=== PATIENT | female | born 1995 | race Caucasian/White ===

== ENCOUNTER 2016-08-15 08:31 | Emergency (ER) | payer OTHER ==
--- NOTE | 2016-08-15 10:33 | DIAGNOSTIC IMAGING REPORT ---
PROCEDURE: XR CHEST 2 VIEW INDICATION: COUGH TECHNIQUE: PA and lateral views. COMPARISON: None. FINDINGS: Lungs are clear. Heart and mediastinum are normal. Thorax is normal. IMPRESSION: 1. Negative chest.
--- NOTE | 2016-08-15 11:02 | ED NURSING NOTES ---
Clinical Report - Nurses [address] [place] [address] 08/15/2016 8:32 Patient: KERRIE MACHUCA TRIAGE Triage time 0850. Acuity: LEVEL 4. Chief Complaint: COUGH and (cold sxs x 3 days, now with increasing pain with breathing). Alert. No acute distress. --08:55 Bre Salazar 08:52 08/15/16. BP: 107/59. HR: 82. RR: 16. O2 saturation: 98%. Temp: 98.3 F. Pain level now 01/13. --08:55 Bre Salazar. Weight: 52.6 kg. Height/Length: 63 inches. BMI: 20.5. Growth Chart Percentile: Weight: 26.3%. Height/Length: 30.5%. --08:51 Bre Salazar. Medications None. --08:53 Bre Salazar. Allergies No Known Drug Allergy. --08:53 Bre Salazar. History Arrived by private vehicle. Historian: patient. Onset. (4 days ago). 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 SOCIAL HX: Current every day light tobacco smoker, start date 2014 (cigarette)- less than 1/2 a pack per day. --08:55 Bre Salazar. Interventions ID band on patient. To treatment room. --08:55 Bre Salazar. PHYSICAL ASSESSMENT Ambulatory to room. GENERAL / NEURO / PSYCH: Alert. Oriented X 4. Appears in no acute distress. HEENT: Pupils equal, round and reactive to light. Ears within normal limits. Nares within normal limits. Mouth within normal limits upon inspection. Voice within normal limits. Mucous membranes are pink. RESPIRATORY: Respirations not labored. CVS: Normal sinus rhythm noted. Capillary refill less than 2 seconds. SKIN: Skin is warm. Normal skin turgor. --08:57 Bre Salazar. DISPOSITION / DISCHARGE Departure time: 1110. Condition at departure: unchanged and stable. No learning barriers present. Reviewed medication(s). Patient verbalized understanding. Written instructions provided in Thai. The patient was discharged by the physician. She was discharged home. She left the Emergency Department ambulatory and via private vehicle. Patient driving. --11:12 Bre Salazar 11:11 08/15/16. BP: 108/77. HR: 79. RR: 16. O2 saturation: 98%. --11:12 Bre Salazar. Locked/Released at 08/15/2016 11:12 by Bre Salazar,
--- NOTE | 2016-08-15 11:02 | ED CLINICAL REPORT ---
Clinical Report - Physicians/Mid Levels [facility] [address] [place] [address] 08/15/2016 8:32 Patient: KERRIE MACHUCA Arrived- By private vehicle. Historian- patient. HISTORY OF PRESENT ILLNESS Chief Complaint: COUGH. This started 4 - 5 days and is still present and worsening. It is not gone now. The illness is described as moderate. The patient has had sputum production, a cough, nasal congestion, sinus pressure and a nasal discharge. She has had chest discomfort (only when taking a deep breathing). She has had fever (resolved yesterday). Additional history - The patient has had contact with a sick individual. (family). No recent travel. Similar symptoms previously: None. Recent medical care: Not recently seen/assessed. REVIEW OF SYSTEMS No nausea, vomiting, diarrhea or abdominal pain. All systems otherwise negative, except as recorded above. PAST HISTORY No history of asthma. Medications: None. Allergies: No Known Drug Allergy. SOCIAL HISTORY Current every day smoker. No alcohol use or drug use. Is a local resident. FAMILY HISTORY Negative. ADDITIONAL NOTES The nursing notes have been reviewed. PHYSICAL EXAM Vital Signs: 08/15/2016 08:52 BP: 107/59. HR: 82. RR: 16. O2 saturation: 98%. Temp: 98.3 F. Blood pressure normal. Oxygen saturation normal. Appearance: Alert. No acute distress. Eyes: Pupils equal, round and reactive to light. Eyes normal inspection. ENT: Ears normal. Nose normal. Pharynx normal. Uvula midline. (+). Neck: Normal inspection. Neck supple. CVS: Normal heart rate and rhythm. Heart sounds normal. Pulses normal. Respiratory: No respiratory distress. Breath sounds normal. No rales, rhonchi, wheezes or stridor. Abdomen: Soft and nontender. No organomegaly. Back: Normal inspection. Skin: Skin warm and dry. Normal skin color. No rash. Normal skin turgor. Extremities: Extremities exhibit normal ROM. No lower extremity edema. LABS, X-RAYS, AND EKG Chest X-ray: (PROCEDURE: XR CHEST 2 VIEW INDICATION: COUGH TECHNIQUE: PA and lateral views. COMPARISON: None. FINDINGS: Lungs are clear. Heart and mediastinum are normal. Thorax is normal. IMPRESSION: 1. Negative chest.). Views: PA and lateral. The X-rays were independently viewed by me, interpreted by the radiologist and discussed with the radiologist. Prior films were not available for comparison. PROGRESS AND PROCEDURES Course of Care: The patient is a pleasant 20-year-old female presenting for evaluation of signs and symptoms that are likely consistent with the flu. Patient has been having symptoms for the past for 5 days. Patient is not at high risk for any acute decompensation with food. 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 Patient is not a candidate for Tamiflu otherwise. On the differential diagnosis would also include pneumonia. The patient does have a pneumonia, antibiotic to be required. Patient otherwise has a clearlung examination. Low clinical suspicion. Chest x-ray ordered for further evaluation. Patient is agreeable to the treatment and plan. Chest x-ray does not show any signs of acute consolidations or pneumonia. Lungs are inflated properly. No signs of pneumothorax. Do not feel antibiotics are warranted at this time. Patient likely with viral upper respiratory tract infection. I discussion with patient in regards to workup, diagnosis, home care, follow-up, and return precautions. All questions answered. The patient expressed understanding of these instructions and was agreeable to them. Patient is a good outpatient candidate. Patient has good follow-up. Patient also has good support. Disposition: Discharged. Condition: good. CLINICAL IMPRESSION 08/15/2016 08:52 BP: 107/59. HR: 82. RR: 16. O2 saturation: 98%. Temp: 98.3 F. Blood pressure normal. Oxygen saturation normal. Acute maxillary and frontal sinusitis (bilateral). INSTRUCTIONS Off work today. Warnings: GENERAL WARNINGS: Return or contact your physician immediately if your condition worsens or changes unexpectedly, if not improving as expected, or if other problems arise. Specifically return if pain, vomiting, bleeding, breathing difficulty or fever. Your Current Medications: CONTINUE TAKING THE FOLLOWING MEDICATIONS: None*. Prescription Medications: Zithromax Z-Harshad: Take according to package instructions. No refills. Substitution is permissible. OTC Medications: Claritin 10 mg (available over the counter): take 1 tablet orally every 12 hours as needed for congestion. Dispense thirty (30). No refill. Substitution is permissible. Pseudoephedrine 30 mg tabs (available over the counter): take 1 tablet orally every 6 hours for 3 days, as needed for congestion. No refill. (Disp 12 tabs. Do not take for longer than 3 days.) Follow-up: Return to the emergency department as needed. Follow up with your doctor in three days. Reason for referral: recheck today's concerns. Summary of care provided to patient via paper. Screening today revealed the patient's blood pressure to be in the normal range. The patient should follow up with a primary care provider for blood pressure management. Understanding of the discharge instructions verbalized by patient. (Electronically signed by Darryl Perez Dr. 08/17/2016 1:47)
--- NOTE | 2016-08-15 11:02 | ED ORDER SUMMARY ---
..... Patient: KERRIE MACHUCA OrderSheet [facility] VisitID: [id number] [address] [place] [address] 20y, F Registration Date/Time: 08/15/2016 ORDER SHEET Weight: 52.6 kg Allergies: No Known Drug Allergy GENERAL ORDERS: Chest 2V Urgent (08:55 08/15/2016 Kerri per protocol) (Ack 9:05 LNations ER Tech1) (11:12 NHouse ER Tech1) MEDICATION ORDERS: IV FLUIDS: ORDER SHEET NOTES: [Electronically signed by Bre Salazar (11:12 08/15/2016)] [Electronically signed by Darryl Perez Dr. (01:47 08/17/2016)] [Electronically locked/signed by Bre Salazar (11:12 08/15/2016)]
--- NOTE | 2016-08-15 11:02 | ED ORDER SUMMARY ---
..... Patient: KERRIE MACHUCA OrderSheet [facility] VisitID: [id number] [address] [place] [address] 20y, F Registration Date/Time: 08/15/2016 ORDER SHEET Weight: 52.6 kg Allergies: No Known Drug Allergy GENERAL ORDERS: Chest 2V Urgent (08:55 08/15/2016 Kerri per protocol) (Ack 9:05 LNations ER Tech1) (11:12 NHouse ER Tech1) MEDICATION ORDERS: IV FLUIDS: ORDER SHEET NOTES: [Electronically signed by Bre Salazar (11:12 08/15/2016)] [Electronically signed by Darryl Perez Dr. (01:47 08/17/2016)] [Electronically locked/signed by Bre Salazar (11:12 08/15/2016)]
--- NOTE | 2016-08-15 11:02 | ED NURSING NOTES ---
Clinical Report - Nurses [facility] [address] [place] [address] 08/15/2016 8:32 Patient: KERRIE MACHUCA TRIAGE Triage time 0850. Acuity: LEVEL 4. Chief Complaint: COUGH and (cold sxs x 3 days, now with increasing pain with breathing). Alert. No acute distress. --08:55 Bre Salazar 08:52 08/15/16. BP: 107/59. HR: 82. RR: 16. O2 saturation: 98%. Temp: 98.3 F. Pain level now 01/13. --08:55 Bre Salazar. Weight: 52.6 kg. Height/Length: 63 inches. BMI: 20.5. Growth Chart Percentile: Weight: 26.3%. Height/Length: 30.5%. --08:51 Bre Salazar. Medications None. --08:53 Bre Salazar. Allergies No Known Drug Allergy. --08:53 Bre Salazar. History Arrived by private vehicle. Historian: patient. Onset. (4 days ago). 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 SOCIAL HX: Current every day light tobacco smoker, start date 2014 (cigarette)- less than 1/2 a pack per day. --08:55 Bre Salazar. Interventions ID band on patient. To treatment room. --08:55 Bre Salazar. PHYSICAL ASSESSMENT Ambulatory to room. GENERAL / NEURO / PSYCH: Alert. Oriented X 4. Appears in no acute distress. HEENT: Pupils equal, round and reactive to light. Ears within normal limits. Nares within normal limits. Mouth within normal limits upon inspection. Voice within normal limits. Mucous membranes are pink. RESPIRATORY: Respirations not labored. CVS: Normal sinus rhythm noted. Capillary refill less than 2 seconds. SKIN: Skin is warm. Normal skin turgor. --08:57 Bre Salazar. DISPOSITION / DISCHARGE Departure time: 1110. Condition at departure: unchanged and stable. No learning barriers present. Reviewed medication(s). Patient verbalized understanding. Written instructions provided in Macedonian. The patient was discharged by the physician. She was discharged home. She left the Emergency Department ambulatory and via private vehicle. Patient driving. --11:12 Bre Salazar 11:11 08/15/16. BP: 108/77. HR: 79. RR: 16. O2 saturation: 98%. --11:12 Bre Salazar. Locked/Released at 08/15/2016 11:12 by Bre Salazar,
--- NOTE | 2016-08-17 01:47 | ED MED RECONCILIATION SUMMARY ---
Patient: KERRIE MACHUCA Medication Reconciliation Report [facility] VisitID: [id number] [place] [address] 20y, F Registration Date/Time: 08/15/2016 Weight: 52.6 kg Height/Length: 63 in. BMI: 20.5 ALLERGIES: No Known Drug Allergy The patient's Home Medications are listed below: NONE. The source(s) of the original Home Medication information: Not obtained. The following Medications were given to the patient in the Emergency Department: None. The following Medications were prescribed to the patient: Zithromax Z-Harshad: Take according to package instructions. No refills. Substitution is permissible. -- Darryl Perez Dr. Claritin 10 mg (available over the counter): take 1 tablet orally every 12 hours as needed for congestion. Dispense thirty (30). No refill. Substitution is permissible. -- Darryl Perez Dr. Pseudoephedrine 30 mg tabs (available over the counter): take 1 tablet orally every 6 hours for 3 days, as needed for congestion. No refill.(Disp 12 tabs. Do not take for longer than 3 days.) -- Darryl Perez Dr.
--- NOTE | 2016-08-17 01:47 | ED DISCHARGE INSTRUCTIONS ---
Patient: KERRIE MACHUCA General Instructions [facility] VisitID: [id number] [place] [address] 20y, F Registration Date/Time: 08/15/2016 08/15/2016 08:52 BP: 107/59. HR: 82. RR: 16. O2 saturation: 98%. Temp: 98.3 F. Blood pressure normal. Oxygen saturation normal. Acute maxillary and frontal sinusitis (bilateral). INSTRUCTIONS Off work today. Warnings: GENERAL WARNINGS: Return or contact your physician immediately if your condition worsens or changes unexpectedly, if not improving as expected, or if other problems arise. Specifically return if pain, vomiting, bleeding, breathing difficulty or fever. Your Current Medications: CONTINUE TAKING THE FOLLOWING MEDICATIONS: None*. Prescription Medications: Zithromax Z-Harshad: Take according to package instructions. No refills. Substitution is permissible. OTC Medications: Claritin 10 mg (available over the counter): take 1 tablet orally every 12 hours as needed for congestion. Dispense thirty (30). No refill. Substitution is permissible. Pseudoephedrine 30 mg tabs (available over the counter): take 1 tablet orally every 6 hours for 3 days, as needed for congestion. No refill. (Disp 12 tabs. Do not take for longer than 3 days.) Follow-up: Return to the emergency department as needed. Follow up with your doctor in three days. Reason for referral: recheck today's concerns. Summary of care provided to patient via paper. Screening today revealed the patient's blood pressure to be in the normal range. The patient should follow up with a primary care provider for blood pressure management. Understanding of the discharge instructions verbalized by patient. ADDITIONAL INFORMATION Sinusitis [Abx Tx] The sinuses are air-filled spaces within the bones of the face. They connect to the inside of the nose. Sinusitis is an inflammation of the tissue lining the sinus cavity. Sinus inflammation can occur during a cold or hay-fever (allergies to pollens and other particles in the air) and cause symptoms of sinus congestion and fullness. A sinus infection causes fever, headache and facial pain. There is usually green or yellow drainage from the nose or into the back of the throat (post-nasal drip). Antibiotics are prescribed to treat this condition. Home Care: Drink plenty of water, hot tea, and other liquids to stay well hydrated. This thins the mucus and promotes sinus drainage. Apply heat to the painful areas of the face. Use a towel soaked in hot water. Or, ski instructor the shower and direct the hot spray onto your face. This is a good way to inhale warm water vapor and get heat on your face at the same time. (Cover your mouth and nose with your hands so you can still breathe as you do this.) Use a vaporizer with products such as Sunshine Heart VapoRub (contains menthol) at night. Suck on peppermint, menthol or eucalyptus hard candies during the day. An expectorant containing guaifenesin (such as Robitussin), helps to thin the mucus and promote drainage from the sinuses. [id number] decongestants may be used unless a similar medicine was prescribed. Nasal sprays work the fastest. Use one that contains phenylephrine (Michael-synephrine, Sinex and others) or oxymetazoline (Afrin). First blow the nose gently to remove mucus, then apply the drops. Do not use these medicines more often than directed on the label or for more than three days or symptoms may worsen. You may also use tablets containing pseudoephedrine (Sudafed). Many sinus remedies combine ingredients, which may increase side effects. Read the labels or ask the pharmacist for help. NOTE: Persons with high blood pressure should not use decongestants. They can raise blood pressure. Antihistamines are useful if allergies are a cause of your sinusitis. The mildest one is chlorpheniramine (available without a prescription). The dose for adults is 8-12mg three times a day. [NOTE: Do not use chlorpheniramine if you have glaucoma or if you are a man with trouble urinating due to an enlarged prostate.] Claritin (loratidine) is an antihistamine that causes less drowsiness and is a good alternative for daytime use. Do not use nasal rinses or irrigation during an acute sinus infection, unless advised by your doctor. Rinsing may spread the infection to other sinuses. You may use acetaminophen (Tylenol) or ibuprofen (Motrin, Advil) to control pain, unless another pain medicine was prescribed. [ NOTE: If you have chronic liver or kidney disease or ever had a stomach ulcer, talk with your doctor before using these medicines.] (Aspirin should never be used in anyone under 18 years of age who is ill with a fever. It may cause severe liver damage.) Finish the full course, even if you are feeling better after a few days. Follow Up with your doctor or this facility in one week or as instructed by our staff if not improving. Get Prompt Medical Attention if any of the following occur: Facial pain or headache becomes more severe Stiff neck Unusual drowsiness or confusion, or not acting like your normal self Swelling of the forehead or eyelids Vision problems including blurred or double vision Fever of 100.4F (38C) or higher, or as directed by your healthcare provider Seizure Azithromycin Oral tablet What is this medicine? AZITHROMYCIN (az ith kt BRENNER sin) is a macrolide antibiotic. It is used to treat or prevent certain kinds of bacterial infections. It will not work for colds, flu, or other viral infections. How should I use this medicine? Take this medicine by mouth with a full glass of water. Follow the directions on the prescription label. The tablets can be taken with food or on an empty stomach. If the medicine upsets your stomach, take it with food. Take your medicine at regular intervals. Do not take your medicine more often than directed. Take all of your medicine as directed even if you think your are better. Do not skip doses or stop your medicine early. Talk to your popcorn attendant regarding the use of this medicine in children. Special care may be needed. What side effects may I notice from receiving this medicine? Side effects that you should report to your doctor or health healthcare management consultant as soon as possible: allergic reactions like skin rash, itching or hives, swelling of the face, lips, or tongue confusion, nightmares or hallucinations dark urine difficulty breathing hearing loss irregular heartbeat or chest pain pain or difficulty passing urine redness, blistering, peeling or loosening of the skin, including inside the mouth white patches or sores in the mouth yellowing of the eyes or skin Side effects that usually do not require medical attention (report to your doctor or health healthcare management consultant if they continue or are bothersome): diarrhea dizziness, drowsiness headache stomach upset or vomiting tooth discoloration vaginal irritation What may interact with this medicine? Do not take this medicine with any of the following medications: lincomycin This medicine may also interact with the following medications: amiodarone antacids cyclosporine digoxin magnesium nelfinavir phenytoin warfarin What if I miss a dose? If you miss a dose, take it as soon as you can. If it is almost time for your next dose, take only that dose. Do not take double or extra doses. Where should I keep my medicine? Keep out of the reach of children. Store at room temperature between 15 and 30 degrees C (59 and 86 degrees F). Throw away any unused medicine after the expiration date. What should I tell my health care provider before I take this medicine? They need to know if you have any of these conditions: kidney disease liver disease irregular heartbeat or heart disease an unusual or allergic reaction to azithromycin, erythromycin, other macrolide antibiotics, foods, dyes, or preservatives or trying to get breast-feeding What should I watch for while using this medicine? Tell your doctor or health healthcare management consultant if your symptoms do not improve. Do not treat diarrhea with over the counter products. Contact your doctor if you have diarrhea that lasts more than 2 days or if it is severe and watery. This medicine can make you more sensitive to the sun. Keep out of the sun. If you cannot avoid being in the sun, wear protective clothing and use sunscreen. Do not use sun lamps or tanning beds/booths. Loratadine Oral tablet, extended release 24 hour What is this medicine? LORATADINE (giovana AT a jerri) is an antihistamine. It helps to relieve sneezing, runny nose, and itchy, watery eyes. This medicine is used to treat the symptoms of allergies. It is also used to treat itchy skin rash and hives. How should I use this medicine? Take this medicine by mouth with a glass of water. Follow the directions on the label. You may take this medicine with food or on an empty stomach. Take your medicine at regular intervals. Do not take your medicine more often than directed. Talk to your popcorn attendant regarding the use of this medicine in children. While this medicine may be used in children as young as 6 years for selected conditions, precautions do apply. What side effects may I notice from receiving this medicine? Side effects that you should report to your doctor or health healthcare management consultant as soon as possible: allergic reactions like skin rash, itching or hives, swelling of the face, lips, or tongue breathing problems unusually restless or nervous Side effects that usually do not require medical attention (report to your doctor or health healthcare management consultant if they continue or are bothersome): drowsiness dry or irritated mouth or throat headache What may interact with this medicine? other medicines for colds or allergies What if I miss a dose? If you miss a dose, take it as soon as you can. If it is almost time for your next dose, take only that dose. Do not take double or extra doses. Where should I keep my medicine? Keep out of the reach of children. Store at room temperature between 2 and 30 degrees C (36 and 86 degrees F). Protect from moisture. Throw away any unused medicine after the expiration date. What should I tell my health care provider before I take this medicine? They need to know if you have any of these conditions: asthma kidney disease liver disease an unusual or allergic reaction to loratadine, other antihistamines, other medicines, foods, dyes, or preservatives or trying to get breast-feeding What should I watch for while using this medicine? Tell your doctor or healthcare professional if your symptoms do not start to get better or if they get worse. Your mouth may get dry. Chewing sugarless gum or sucking hard candy, and drinking plenty of water may help. Contact your doctor if the problem does not go away or is severe. You may get drowsy or dizzy. Do not drive, use machinery, or do anything that needs mental alertness until you know how this medicine affects you. Do not stand or sit up quickly, especially if you are an older patient. This reduces the risk of dizzy or fainting spells. Pseudoephedrine Hydrochloride Oral tablet [Abuse Deterrent] What is this medicine? PSEUDOEPHEDRINE (raman bello e FED rin) is a decongestant. It is used to treat congestion of the nose or sinuses. How should I use this medicine? Take this medicine by mouth with a glass of water. Follow the directions on the package or prescription label. Take your medicine at regular intervals. Do not take your medicine more often than directed. Talk to your popcorn attendant regarding the use of this medicine in children. While this drug may be prescribed for children as young as 6 years of age for selected conditions, precautions do apply. Patients over 65 years old may have a stronger reaction and need a smaller dose. What side effects may I notice from receiving this medicine? Side effects that you should report to your doctor or health healthcare management consultant as soon as possible: allergic reactions like skin rash, itching or hives, swelling of the face, lips, or tongue bloody diarrhea with stomach pain breathing problems chest pain confused, agitated, nervous fast, irregular heartbeat feeling faint or lightheaded, falls hallucinations high blood pressure pain, tingling, numbness in the hands or feet trouble passing urine or change in the amount of urine trouble sleeping Side effects that usually do not require medical attention (report to your doctor or health healthcare management consultant if they continue or are bothersome): headache loss of appetite nausea, stomach upset What may interact with this medicine? Do not take this medicine with any of the following medications: bromocriptine ergot alkaloids like dihydroergotamine, ergonovine, ergotamine, methylergonovine MAOIs like Carbex, Eldepryl, Marplan, Nardil, and Parnate stimulant medicines for attention disorders, weight loss, or to stay awake This medicine may also interact with the following medications: alcohol atropine bretylium caffeine digoxin linezolid mecamylamine medicines for blood pressure medicines for depression, anxiety, or psychotic disturbances like fluoxetine, sertraline medicines for enlarged prostate medicines for sleep other medicines for cold, cough, or allergy procarbazine reserpine some heart medicines like metoprolol [place]'s Wort What if I miss a dose? If you miss a dose, take it as soon as you can. If it is almost time for your next dose, take only that dose. Do not take double or extra doses. Where should I keep my medicine? Keep out of the reach of children. Store at room temperature between 15 and 25 degrees C (59 and 77 degrees F). Protect from heat and moisture. Throw away any unused medicine after the expiration date. What should I tell my health care provider before I take this medicine? They need to know if you have any of the following conditions: diabetes glaucoma heart disease high blood pressure kidney disease prostate trouble taken an MAOI like Carbex, Eldepryl, Marplan, Nardil, or Parnate in last 14 days thyroid disease trouble passing urine an unusual or allergic reaction to pseudoephedrine, other medicines, foods, dyes, or preservatives or trying to get breast-feeding What should I watch for while using this medicine? Tell your doctor or healthcare professional if your symptoms do not start to get better or if they get worse. See your doctor if you are not better in 7 days or if you have a fever. You have been given the following additional information: Sinusitis, Abx Tx Azithromycin Oral tablet Loratadine Oral tablet, extended release 24 hour Pseudoephedrine Hydrochloride Oral tablet [Abuse Deterrent] Off work today. (Electronically signed by Darryl Perez Dr. 08/17/2016 1:47)
--- NOTE | 2016-08-17 01:47 | ED MAR SUMMARY ---
..... Medication Administration Record [facility] [address] [place], [place] [id number] Patient: KERRIE MACHUCA Visit ID: [id number] 20y, F Weight: 52.6 kg Height/Length: 63 in BMI: 20.5 ALLERGIES: No Known Drug Allergy
--- NOTE | 2016-08-17 01:47 | ED MAR SUMMARY ---
..... Medication Administration Record [facility] [address] [place], [place] [id number] Patient: KERRIE MACHUCA Visit ID: [id number] 20y, F Weight: 52.6 kg Height/Length: 63 in BMI: 20.5 ALLERGIES: No Known Drug Allergy
--- NOTE | 2016-08-17 01:47 | ED MED RECONCILIATION SUMMARY ---
Patient: KERRIE MACHUCA Medication Reconciliation Report [facility] VisitID: [id number] [place] [address] 20y, F Registration Date/Time: 08/15/2016 Weight: 52.6 kg Height/Length: 63 in. BMI: 20.5 ALLERGIES: No Known Drug Allergy The patient's Home Medications are listed below: NONE. The source(s) of the original Home Medication information: Not obtained. The following Medications were given to the patient in the Emergency Department: None. The following Medications were prescribed to the patient: Zithromax Z-Harshad: Take according to package instructions. No refills. Substitution is permissible. -- Darryl Perez Dr. Claritin 10 mg (available over the counter): take 1 tablet orally every 12 hours as needed for congestion. Dispense thirty (30). No refill. Substitution is permissible. -- Darryl Perez Dr. Pseudoephedrine 30 mg tabs (available over the counter): take 1 tablet orally every 6 hours for 3 days, as needed for congestion. No refill.(Disp 12 tabs. Do not take for longer than 3 days.) -- Darryl Perez Dr.
== END 2016-08-15 11:10 | disposition home or self-care (01) ==
LOC: ED SRH 08:31
DX: J01.00 Acute maxillary sinusitis, unspecified (principal); J01.10 Acute frontal sinusitis, unspecified; F17.210 Nicotine dependence, cigarettes, uncomplicated

== ENCOUNTER 2016-09-08 20:04 | Emergency (ER) | payer OTHER ==
--- NOTE | 2016-09-08 20:41 | ED ORDER SUMMARY ---
..... Patient: KERRIE MACHUCA OrderSheet [facility] VisitID: [id number] [address] [place] [address] 20y, F Registration Date/Time: 09/08/2016 ORDER SHEET Weight: 53.5 kg (stated) Allergies: No Known Drug Allergy GENERAL ORDERS: Dress Wounds (20:40 09/08/2016 Uziel GARDNER) (20:42 Regino JonesNEvelia) Culture, Wound Deep (Ear) (swab) Urgent (20:41 09/08/2016 Uziel GARDNER) (Ack 20:42 Cameron ARGUETA Traffic Personnel Supervisor) (20:42 Regino Boogie) MEDICATION ORDERS: IV FLUIDS: ORDER SHEET NOTES: [Electronically signed by Harvey Mcneill R.N. (20:56 09/08/2016)] [Electronically signed by Byron Lester MD (22:05 09/12/2016)] [Electronically locked/signed by Harvey Mcneill R.N. (20:56 09/08/2016)]
--- NOTE | 2016-09-08 20:41 | ED CLINICAL REPORT ---
Clinical Report - Physicians/Mid Levels [facility] [address] [place] [address] 09/08/2016 20:05 [id number] Time Seen: 20:27 Sep 08 2016. Arrived- By private vehicle. Historian- patient. CPT: ER phys charges level 3 plus (#[id number]). Abscess complicated I&D (#[id number]). HISTORY OF PRESENT ILLNESS Chief Complaint: LESION and (cyst behind right ear.). This started several months and is still present. It is described as painful. It has been located on the face (behind right ear.). No cause has been identified. Similar symptoms previously: None. Recent medical care: Not recently seen/assessed. REVIEW OF SYSTEMS No fever, chills, sore throat, cough or difficulty breathing. No hoarseness, lump in throat, enlarged lymph nodes, chest pain or abdominal pain. No nausea, diarrhea, difficulty with urination or joint pain. All systems otherwise negative, except as recorded above. PAST HISTORY Migraine Headache. Anxiety Reaction. Sinusitis. Abdominal Pain. Peptic Ulcer Disease. Gastroesophageal Reflux Disease. [place] teeth. Medications: None. Allergies: No Known Drug Allergy. SOCIAL HISTORY Heavy tobacco smoker (cigarette)- 1 pack per day. ADDITIONAL NOTES The nursing notes have been reviewed. PHYSICAL EXAM Vital Signs: 09/08/2016 20:10 BP: 120/68. HR: 90. RR: 16. O2 saturation: 100%. Temp: 97.9 F. Appearance: Alert. No acute distress. Eyes: Pupils equal, round and reactive to light. Conjunctivae and eyelids normal. ENT: Ears normal. Nose normal. Pharynx normal. ( Fluctuant mass behind the right ear. No erythema or cellulits. Tender to palpation.). Neck: Neck supple. No lymphadenopathy. Respiratory: No respiratory distress. Breath sounds normal. Skin: Skin warm. Normal skin color. No rash. Extremities: Extremities nontender. Neuro: Oriented X 3. LABS, X-RAYS, AND EKG Laboratory Tests: Culture, Wound Deep: (GARY: 09/08/2016 20:50) ( MsgRcvd 09/11/2016 11:56) IP SPECIMEN DESCRIPTION: SWAB Test Result Flag Units (Reference) GRAM STAIN, WOUND, DEEP NO CELLS/NO BACTERIA: NO CELLS OR BACTERIA SEEN CULTURE, WOUND DEEP, AEROBIC DATE: 09/11/16 PRELIM REPORT: FINAL REPORT -- NSF GROWTH: MODERATE GROWTH ID AND SENS TO FOLLOW: NO FURTHER WORKUP CULTURE, ANAEROBIC, WOUND DEEP DATE: 09/11/16 NO ANAEROBIC GROWTH AT:: NO ANAEROBES ISOLATED AT 3 DAYS PRELIM REPORT: FINAL REPORT . PROGRESS AND PROCEDURES Incision & Drainage of Abscess: The abscess is located in the head (behind right ear). The risks of the procedure, benefits and alternatives were explained. Consent was obtained. Anesthesia provided using 2% lidocaine. Skin cleansed with Betadine. The abscess was incised with a #11 surgical blade. A moderate amount of pus was drained. Cavity was irrigated with saline. Sample obtained for cultures and gram stain. A dressing was applied. Estimated blood loss: 1 mL. Patient/family counseled. Disposition: Discharged. Condition: stable and improved. CLINICAL IMPRESSION Infected cyst right , posterior ear. INSTRUCTIONS Protect wound and keep wound area clean. Change dressing twice daily. Keep wounds dry. You may wash wounds briefly, then dry. Apply neosporin twice daily. Warnings: Further evaluation is necessary. GENERAL WARNINGS: Return or contact your physician immediately if your condition worsens or changes unexpectedly, if not improving as expected, or if other problems arise. Prescription Medications: Hydrocodone/APAP 5mg / 325mg: take 1-2 orally every 6 hours as needed for pain. Dispense five (5). No refill. Bactrim DS 800 mg / 160 mg: Take 1 tablet orally every 12 hours for 7 days. Dispense fourteen (14). No refills. Substitution is permissible. Follow-up: Follow up with your doctor in one week. Call for an appointment. Understanding of the discharge instructions verbalized by patient. Discharge instructions reviewed with and understanding was verbalized by sight mounter. (Electronically signed by Byron Lester MD 09/12/2016 22:05)
--- NOTE | 2016-09-08 20:41 | ED CLINICAL REPORT ---
Clinical Report - Physicians/Mid Levels [facility] [address] [place] [address] 09/08/2016 20:05 [id number] Time Seen: 20:27 Sep 08 2016. Arrived- By private vehicle. Historian- patient. CPT: ER phys charges level 3 plus (#[id number]). Abscess complicated I&D (#[id number]). HISTORY OF PRESENT ILLNESS Chief Complaint: LESION and (cyst behind right ear.). This started several months and is still present. It is described as painful. It has been located on the face (behind right ear.). No cause has been identified. Similar symptoms previously: None. Recent medical care: Not recently seen/assessed. REVIEW OF SYSTEMS No fever, chills, sore throat, cough or difficulty breathing. No hoarseness, lump in throat, enlarged lymph nodes, chest pain or abdominal pain. No nausea, diarrhea, difficulty with urination or joint pain. All systems otherwise negative, except as recorded above. PAST HISTORY Migraine Headache. Anxiety Reaction. Sinusitis. Abdominal Pain. Peptic Ulcer Disease. Gastroesophageal Reflux Disease. [place] teeth. Medications: None. Allergies: No Known Drug Allergy. SOCIAL HISTORY Heavy tobacco smoker (cigarette)- 1 pack per day. ADDITIONAL NOTES The nursing notes have been reviewed. PHYSICAL EXAM Vital Signs: 09/08/2016 20:10 BP: 120/68. HR: 90. RR: 16. O2 saturation: 100%. Temp: 97.9 F. Appearance: Alert. No acute distress. Eyes: Pupils equal, round and reactive to light. Conjunctivae and eyelids normal. ENT: Ears normal. Nose normal. Pharynx normal. ( Fluctuant mass behind the right ear. No erythema or cellulits. Tender to palpation.). Neck: Neck supple. No lymphadenopathy. Respiratory: No respiratory distress. Breath sounds normal. Skin: Skin warm. Normal skin color. No rash. Extremities: Extremities nontender. Neuro: Oriented X 3. LABS, X-RAYS, AND EKG Laboratory Tests: Culture, Wound Deep: (GARY: 09/08/2016 20:50) ( MsgRcvd 09/11/2016 11:56) IP SPECIMEN DESCRIPTION: SWAB Test Result Flag Units (Reference) GRAM STAIN, WOUND, DEEP NO CELLS/NO BACTERIA: NO CELLS OR BACTERIA SEEN CULTURE, WOUND DEEP, AEROBIC DATE: 09/11/16 PRELIM REPORT: FINAL REPORT -- NSF GROWTH: MODERATE GROWTH ID AND SENS TO FOLLOW: NO FURTHER WORKUP CULTURE, ANAEROBIC, WOUND DEEP DATE: 09/11/16 NO ANAEROBIC GROWTH AT:: NO ANAEROBES ISOLATED AT 3 DAYS PRELIM REPORT: FINAL REPORT . PROGRESS AND PROCEDURES Incision & Drainage of Abscess: The abscess is located in the head (behind right ear). The risks of the procedure, benefits and alternatives were explained. Consent was obtained. Anesthesia provided using 2% lidocaine. Skin cleansed with Betadine. The abscess was incised with a #11 surgical blade. A moderate amount of pus was drained. Cavity was irrigated with saline. Sample obtained for cultures and gram stain. A dressing was applied. Estimated blood loss: 1 mL. Patient/family counseled. Disposition: Discharged. Condition: stable and improved. CLINICAL IMPRESSION Infected cyst right , posterior ear. INSTRUCTIONS Protect wound and keep wound area clean. Change dressing twice daily. Keep wounds dry. You may wash wounds briefly, then dry. Apply neosporin twice daily. Warnings: Further evaluation is necessary. GENERAL WARNINGS: Return or contact your physician immediately if your condition worsens or changes unexpectedly, if not improving as expected, or if other problems arise. Prescription Medications: Hydrocodone/APAP 5mg / 325mg: take 1-2 orally every 6 hours as needed for pain. Dispense five (5). No refill. Bactrim DS 800 mg / 160 mg: Take 1 tablet orally every 12 hours for 7 days. Dispense fourteen (14). No refills. Substitution is permissible. Follow-up: Follow up with your doctor in one week. Call for an appointment. Understanding of the discharge instructions verbalized by patient. Discharge instructions reviewed with and understanding was verbalized by art therapy certified supervisor. (Electronically signed by Byron Lester MD 09/12/2016 22:05)
--- NOTE | 2016-09-08 20:41 | ED NURSING NOTES ---
Clinical Report - Nurses [facility] [address] [place] [address] 09/08/2016 20:05 Patient: KERRIE MACHUCA TRIAGE Triage time 2009. Chief Complaint: RIGHT EAR PAIN. --20:18 Harvey Mcneill R.N. 20:10 09/08/16. BP: 120/68. HR: 90. RR: 16. O2 saturation: 100%. Temp: 97.9 F. --20:18 Harvey Mcneill R.N. Weight: 53.5 kg stated. Height/Length: 63 inches Per Patient. BMI: 20.9. Growth Chart Percentile: Weight: 30%. Height/Length: 30.4%. --20:17 Harvey Mcneill R.N. Medications None. --20:16 Harvey Mcneill R.N. Allergies No Known Drug Allergy. --20:16 Harvey Mcneill R.N. History Arrived by private vehicle. Historian: patient. Accompanied by spouse. Onset. (4 months ago). ( small lump behind right ear appeared 4 months ago. pt states 2 weeks ago it started hurting and father made her come to get checked out.). ( no other c/o's). 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 PAST MEDICAL HX: Last normal menstrual period- Aug 08. SOCIAL HX: Heavy tobacco smoker- less than 1 pack per day. FALL RISK ASSESSMENT: Fall risk assessment completed. No fall risk identified. NUTRITIONAL RISK ASSESSMENT: The nutritional risk assessment revealed no deficiencies. FUNCTIONAL ASSESSMENT: Functional assessment: no impairments noted. LEARNING NEEDS ASSESSMENT: The learning needs assessment revealed no barriers. SKIN INTEGRITY ASSESSMENT: Skin integrity risk assessment completed. No skin integrity risk identified. --20:18 Harvey Mcneill R.N. PROBLEMS: Migraine Headache. Anxiety Reaction. Sinusitis. Abdominal Pain. Peptic Ulcer Disease. Gastroesophageal Reflux Disease. --20:17 Hravey Mcneill R.N. ADDITIONAL SURGERIES: [place] teeth. --20:17 Harvey Mcneill R.N. Interventions ID band on patient. --20:18 Harvey Mcneill R.N. PHYSICAL ASSESSMENT Ambulatory to room. GENERAL / NEURO / PSYCH: Alert. Appears in no acute distress. HEENT: No facial asymmetry noted. Pupils equal, round and reactive to light. EOM intact. Pain upon movement of the right auricle. (swollen tender area behind right ear.). Left ear within normal limits. Nares within normal limits. Pharynx within normal limits. RESPIRATORY: Respirations not labored. CVS: Capillary refill less than 2 seconds. SKIN: Skin is warm and dry. --20:19 Harvey Mcneill R.N. NURSING PROGRESS NOTES Head of bed elevated. Reassurance given. Patient identifiers checked. Call light placed in reach. Bed placed in lowest position. Brakes of bed on. --20:20 Harvey Mcneill R.N. DISPOSITION / DISCHARGE Departure time: 2049. Condition at departure: improved. No learning barriers present. Discharge instructions provided and reviewed with the patient and spouse. Reviewed warnings. Reviewed medication(s). Treatments reviewed. Patient and spouse verbalized understanding. Written instructions provided in Scottish. The patient was discharged by the physician. She was discharged home and accompanied by spouse. She left the Emergency Department ambulatory and via private vehicle. Spouse driving. --20:56 Harvey Mcneill R.N. 20:55 09/08/16. BP: 128/68. HR: 66. RR: 16. O2 saturation: 100%. Temp: 97.8 F. Pain level now 10/13. --20:56 Harvey Mcneill R.N. Locked/Released at 09/08/2016 20:56 by Harvey Mcneill R.N.
--- NOTE | 2016-09-08 20:41 | ED ORDER SUMMARY ---
..... Patient: KERRIE MACHUCA OrderSheet [facility] VisitID: [id number] [address] [place] [address] 20y, F Registration Date/Time: 09/08/2016 ORDER SHEET Weight: 53.5 kg (stated) Allergies: No Known Drug Allergy GENERAL ORDERS: Dress Wounds (20:40 09/08/2016 Uziel GARDNER) (20:42 Regino JonesNEvelia) Culture, Wound Deep (Ear) (swab) Urgent (20:41 09/08/2016 Uziel GARDNER) (Ack 20:42 Cameron ARGUETA Load Dispatcher) (20:42 Regino Boogie) MEDICATION ORDERS: IV FLUIDS: ORDER SHEET NOTES: [Electronically signed by Harvey Mcneill R.N. (20:56 09/08/2016)] [Electronically signed by Byron Lester MD (22:05 09/12/2016)] [Electronically locked/signed by Harvey Mcneill R.N. (20:56 09/08/2016)]
--- NOTE | 2016-09-08 20:41 | ED NURSING NOTES ---
Clinical Report - Nurses [facility] [address] [place] [address] 09/08/2016 20:05 Patient: KERRIE MACHUCA TRIAGE Triage time 2009. Chief Complaint: RIGHT EAR PAIN. --20:18 Harvey Mcneill R.N. 20:10 09/08/16. BP: 120/68. HR: 90. RR: 16. O2 saturation: 100%. Temp: 97.9 F. --20:18 Harvey Mcneill R.N. Weight: 53.5 kg stated. Height/Length: 63 inches Per Patient. BMI: 20.9. Growth Chart Percentile: Weight: 30%. Height/Length: 30.4%. --20:17 Harvey Mcneill R.N. Medications None. --20:16 Harvey Mcneill R.N. Allergies No Known Drug Allergy. --20:16 Harvey Mcneill R.N. History Arrived by private vehicle. Historian: patient. Accompanied by spouse. Onset. (4 months ago). ( small lump behind right ear appeared 4 months ago. pt states 2 weeks ago it started hurting and father made her come to get checked out.). ( no other c/o's). 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 PAST MEDICAL HX: Last normal menstrual period- Aug 08. SOCIAL HX: Heavy tobacco smoker- less than 1 pack per day. FALL RISK ASSESSMENT: Fall risk assessment completed. No fall risk identified. NUTRITIONAL RISK ASSESSMENT: The nutritional risk assessment revealed no deficiencies. FUNCTIONAL ASSESSMENT: Functional assessment: no impairments noted. LEARNING NEEDS ASSESSMENT: The learning needs assessment revealed no barriers. SKIN INTEGRITY ASSESSMENT: Skin integrity risk assessment completed. No skin integrity risk identified. --20:18 Harvey Mcneill R.N. PROBLEMS: Migraine Headache. Anxiety Reaction. Sinusitis. Abdominal Pain. Peptic Ulcer Disease. Gastroesophageal Reflux Disease. --20:17 Harvey Mcneill R.N. ADDITIONAL SURGERIES: [place] teeth. --20:17 Harvey Mcneill R.N. Interventions ID band on patient. --20:18 Harvey Mcneill R.N. PHYSICAL ASSESSMENT Ambulatory to room. GENERAL / NEURO / PSYCH: Alert. Appears in no acute distress. HEENT: No facial asymmetry noted. Pupils equal, round and reactive to light. EOM intact. Pain upon movement of the right auricle. (swollen tender area behind right ear.). Left ear within normal limits. Nares within normal limits. Pharynx within normal limits. RESPIRATORY: Respirations not labored. CVS: Capillary refill less than 2 seconds. SKIN: Skin is warm and dry. --20:19 Harvey Mcneill R.N. NURSING PROGRESS NOTES Head of bed elevated. Reassurance given. Patient identifiers checked. Call light placed in reach. Bed placed in lowest position. Brakes of bed on. --20:20 Harvey Mcneill R.N. DISPOSITION / DISCHARGE Departure time: 2049. Condition at departure: improved. No learning barriers present. Discharge instructions provided and reviewed with the patient and spouse. Reviewed warnings. Reviewed medication(s). Treatments reviewed. Patient and spouse verbalized understanding. Written instructions provided in Hungarian. The patient was discharged by the physician. She was discharged home and accompanied by spouse. She left the Emergency Department ambulatory and via private vehicle. Spouse driving. --20:56 Harvey Mcneill R.N. 20:55 09/08/16. BP: 128/68. HR: 66. RR: 16. O2 saturation: 100%. Temp: 97.8 F. Pain level now 10/13. --20:56 Harvey Mcneill R.N. Locked/Released at 09/08/2016 20:56 by Harvey Mcneill R.N.
--- NOTE | 2016-09-12 22:06 | ED DISCHARGE INSTRUCTIONS ---
Patient: KERRIE MACHUCA General Instructions [facility] VisitID: [id number] [place] [address] 20y, F Registration Date/Time: 09/08/2016 Infected cyst right , posterior ear. INSTRUCTIONS Protect wound and keep wound area clean. Change dressing twice daily. Keep wounds dry. You may wash wounds briefly, then dry. Apply neosporin twice daily. Warnings: Further evaluation is necessary. GENERAL WARNINGS: Return or contact your physician immediately if your condition worsens or changes unexpectedly, if not improving as expected, or if other problems arise. Prescription Medications: Hydrocodone/APAP 5mg / 325mg: take 1-2 orally every 6 hours as needed for pain. Dispense five (5). No refill. Bactrim DS 800 mg / 160 mg: Take 1 tablet orally every 12 hours for 7 days. Dispense fourteen (14). No refills. Substitution is permissible. Follow-up: Follow up with your doctor in one week. Call for an appointment. Understanding of the discharge instructions verbalized by patient. Discharge instructions reviewed with and understanding was verbalized by information specialist. ADDITIONAL INFORMATION Bandage Change If the bandage becomes wet or dirty, replace it. Otherwise, leave it in place for the first 24 hours. Then once a day: After removing the bandage, wash the area with soap and water. Use a wet cotton swab to loosen and remove any blood or crust that forms on the wound. After cleaning, apply a thin layer of antibiotic ointment or cream. Reapply the bandage. You may shower as usual after the first 24 hours. If the bandage is on an arm or leg, cover it with a plastic bag rubber banded at both ends before showering. No tub baths or swimming until the bandage is removed and the wound healed (at least 7 days). Hydrocodone Bitartrate, Acetaminophen Oral tablet What is this medicine? ACETAMINOPHEN; HYDROCODONE (a set a LEIDY joey fen; abhijeet droe KOE done) is a pain reliever. It is used to treat mild to moderate pain. How should I use this medicine? Take this medicine by mouth. Swallow it with a full glass of water. Follow the directions on the prescription label. If the medicine upsets your stomach, take the medicine with food or milk. Do not take more than you are told to take. Talk to your special day class teacher regarding the use of this medicine in children. This medicine is not approved for use in children. What side effects may I notice from receiving this medicine? Side effects that you should report to your doctor or health care transition manager as soon as possible: allergic reactions like skin rash, itching or hives, swelling of the face, lips, or tongue breathing problems confusion feeling faint or lightheaded, falls stomach pain yellowing of the eyes or skin Side effects that usually do not require medical attention (report to your doctor or health care transition manager if they continue or are bothersome): nausea, vomiting stomach upset What may interact with this medicine? alcohol antihistamines isoniazid medicines for depression, anxiety, or psychotic disturbances medicines for sleep muscle relaxants naltrexone narcotic medicines (opiates) for pain phenobarbital ritonavir tramadol What if I miss a dose? If you miss a dose, take it as soon as you can. If it is almost time for your next dose, take only that dose. Do not take double or extra doses. Where should I keep my medicine? Keep out of the reach of children. This medicine can be abused. Keep your medicine in a safe place to protect it from theft. Do not share this medicine with anyone. Selling or giving away this medicine is dangerous and against the law. Store at room temperature between 15 and 30 degrees C (59 and 86 degrees F). Protect from light. Keep container tightly closed. Throw away any unused medicine after the expiration date. Discard unused medicine and used packaging carefully. Pets and children can be harmed if they find used or lost packages. What should I tell my health care provider before I take this medicine? They need to know if you have any of these conditions: brain tumor Crohn's disease, inflammatory bowel disease, or ulcerative colitis drink more than 3 alcohol-containing drinks per day drug abuse or addiction head injury heart or circulation problems kidney disease or problems going to the bathroom liver disease lung disease, asthma, or breathing problems an unusual or allergic reaction to acetaminophen, hydrocodone, other opioid analgesics, other medicines, foods, dyes, or preservatives or trying to get breast-feeding What should I watch for while using this medicine? Tell your doctor or health care transition manager if your pain does not go away, if it gets worse, or if you have new or a different type of pain. You may develop tolerance to the medicine. Tolerance means that you will need a higher dose of the medicine for pain relief. Tolerance is normal and is expected if you take the medicine for a long time. Do not suddenly stop taking your medicine because you may develop a severe reaction. Your body becomes used to the medicine. This does NOT mean you are addicted. Addiction is a behavior related to getting and using a drug for a non-medical reason. If you have pain, you have a medical reason to take pain medicine. Your doctor will tell you how much medicine to take. If your doctor wants you to stop the medicine, the dose will be slowly lowered over time to avoid any side effects. You may get drowsy or dizzy when you first start taking the medicine or change doses. Do not drive, use machinery, or do anything that may be dangerous until you know how the medicine affects you. Stand or sit up slowly. There are different types of narcotic medicines (opiates) for pain. If you take more than one type at the same time, you may have more side effects. Give your health care provider a list of all medicines you use. Your doctor will tell you how much medicine to take. Do not take more medicine than directed. Call emergency for help if you have problems breathing. The medicine will cause constipation. Try to have a bowel movement at least every 2 to 3 days. If you do not have a bowel movement for 3 days, call your doctor or health care transition manager. Too much acetaminophen can be very dangerous. Do not take Tylenol (acetaminophen) or medicines that contain acetaminophen with this medicine. Many non-prescription medicines contain acetaminophen. Always read the labels carefully. You have been given the following additional information: Dressing Change Hydrocodone Bitartrate, Acetaminophen Oral tablet (Electronically signed by Byron Lester MD 09/12/2016 22:05)
--- NOTE | 2016-09-12 22:06 | ED MED RECONCILIATION SUMMARY ---
Patient: KERRIE MACHUCA Medication Reconciliation Report [facility] VisitID: [id number] [place] [address] 20y, F Registration Date/Time: 09/08/2016 Weight: 53.5 kg Height/Length: 63 in. BMI: 20.9 ALLERGIES: No Known Drug Allergy The patient's Home Medications are listed below: NONE. The source(s) of the original Home Medication information: Not obtained. The following Medications were given to the patient in the Emergency Department: None. The following Medications were prescribed to the patient: Hydrocodone/APAP 5mg / 325mg: take 1-2 orally every 6 hours as needed for pain. Dispense five (5). No refill. -- Byron Lester MD Bactrim DS 800 mg / 160 mg: Take 1 tablet orally every 12 hours for 7 days. Dispense fourteen (14). No refills. Substitution is permissible. -- Byron Letser MD
--- NOTE | 2016-09-12 22:06 | ED MAR SUMMARY ---
..... Medication Administration Record [facility] [address] [place], [place] [id number] Patient: KERRIE MACHUCA Visit ID: [id number] 20y, F Weight: 53.5 kg Height/Length: 63 in BMI: 20.9 ALLERGIES: No Known Drug Allergy
--- NOTE | 2016-09-12 22:06 | ED MED RECONCILIATION SUMMARY ---
Patient: KERRIE MACHUCA Medication Reconciliation Report [facility] VisitID: [id number] [place] [address] 20y, F Registration Date/Time: 09/08/2016 Weight: 53.5 kg Height/Length: 63 in. BMI: 20.9 ALLERGIES: No Known Drug Allergy The patient's Home Medications are listed below: NONE. The source(s) of the original Home Medication information: Not obtained. The following Medications were given to the patient in the Emergency Department: None. The following Medications were prescribed to the patient: Hydrocodone/APAP 5mg / 325mg: take 1-2 orally every 6 hours as needed for pain. Dispense five (5). No refill. -- Byron Lester MD Bactrim DS 800 mg / 160 mg: Take 1 tablet orally every 12 hours for 7 days. Dispense fourteen (14). No refills. Substitution is permissible. -- Byron Lester MD
--- NOTE | 2016-09-12 22:06 | ED MAR SUMMARY ---
..... Medication Administration Record [facility] [address] [place], [place] [id number] Patient: KERRIE MACHUCA Visit ID: [id number] 20y, F Weight: 53.5 kg Height/Length: 63 in BMI: 20.9 ALLERGIES: No Known Drug Allergy
--- NOTE | 2016-09-12 22:06 | ED DISCHARGE INSTRUCTIONS ---
Patient: KERRIE MACHUCA General Instructions [facility] VisitID: [id number] [place] [address] 20y, F Registration Date/Time: 09/08/2016 Infected cyst right , posterior ear. INSTRUCTIONS Protect wound and keep wound area clean. Change dressing twice daily. Keep wounds dry. You may wash wounds briefly, then dry. Apply neosporin twice daily. Warnings: Further evaluation is necessary. GENERAL WARNINGS: Return or contact your physician immediately if your condition worsens or changes unexpectedly, if not improving as expected, or if other problems arise. Prescription Medications: Hydrocodone/APAP 5mg / 325mg: take 1-2 orally every 6 hours as needed for pain. Dispense five (5). No refill. Bactrim DS 800 mg / 160 mg: Take 1 tablet orally every 12 hours for 7 days. Dispense fourteen (14). No refills. Substitution is permissible. Follow-up: Follow up with your doctor in one week. Call for an appointment. Understanding of the discharge instructions verbalized by patient. Discharge instructions reviewed with and understanding was verbalized by building performance consultant. ADDITIONAL INFORMATION Bandage Change If the bandage becomes wet or dirty, replace it. Otherwise, leave it in place for the first 24 hours. Then once a day: After removing the bandage, wash the area with soap and water. Use a wet cotton swab to loosen and remove any blood or crust that forms on the wound. After cleaning, apply a thin layer of antibiotic ointment or cream. Reapply the bandage. You may shower as usual after the first 24 hours. If the bandage is on an arm or leg, cover it with a plastic bag rubber banded at both ends before showering. No tub baths or swimming until the bandage is removed and the wound healed (at least 7 days). Hydrocodone Bitartrate, Acetaminophen Oral tablet What is this medicine? ACETAMINOPHEN; HYDROCODONE (a set a LEIDY joey fen; abhijeet droe KOE done) is a pain reliever. It is used to treat mild to moderate pain. How should I use this medicine? Take this medicine by mouth. Swallow it with a full glass of water. Follow the directions on the prescription label. If the medicine upsets your stomach, take the medicine with food or milk. Do not take more than you are told to take. Talk to your vending enterprises supervisor regarding the use of this medicine in children. This medicine is not approved for use in children. What side effects may I notice from receiving this medicine? Side effects that you should report to your doctor or health pet care technician as soon as possible: allergic reactions like skin rash, itching or hives, swelling of the face, lips, or tongue breathing problems confusion feeling faint or lightheaded, falls stomach pain yellowing of the eyes or skin Side effects that usually do not require medical attention (report to your doctor or health pet care technician if they continue or are bothersome): nausea, vomiting stomach upset What may interact with this medicine? alcohol antihistamines isoniazid medicines for depression, anxiety, or psychotic disturbances medicines for sleep muscle relaxants naltrexone narcotic medicines (opiates) for pain phenobarbital ritonavir tramadol What if I miss a dose? If you miss a dose, take it as soon as you can. If it is almost time for your next dose, take only that dose. Do not take double or extra doses. Where should I keep my medicine? Keep out of the reach of children. This medicine can be abused. Keep your medicine in a safe place to protect it from theft. Do not share this medicine with anyone. Selling or giving away this medicine is dangerous and against the law. Store at room temperature between 15 and 30 degrees C (59 and 86 degrees F). Protect from light. Keep container tightly closed. Throw away any unused medicine after the expiration date. Discard unused medicine and used packaging carefully. Pets and children can be harmed if they find used or lost packages. What should I tell my health care provider before I take this medicine? They need to know if you have any of these conditions: brain tumor Crohn's disease, inflammatory bowel disease, or ulcerative colitis drink more than 3 alcohol-containing drinks per day drug abuse or addiction head injury heart or circulation problems kidney disease or problems going to the bathroom liver disease lung disease, asthma, or breathing problems an unusual or allergic reaction to acetaminophen, hydrocodone, other opioid analgesics, other medicines, foods, dyes, or preservatives or trying to get breast-feeding What should I watch for while using this medicine? Tell your doctor or health pet care technician if your pain does not go away, if it gets worse, or if you have new or a different type of pain. You may develop tolerance to the medicine. Tolerance means that you will need a higher dose of the medicine for pain relief. Tolerance is normal and is expected if you take the medicine for a long time. Do not suddenly stop taking your medicine because you may develop a severe reaction. Your body becomes used to the medicine. This does NOT mean you are addicted. Addiction is a behavior related to getting and using a drug for a non-medical reason. If you have pain, you have a medical reason to take pain medicine. Your doctor will tell you how much medicine to take. If your doctor wants you to stop the medicine, the dose will be slowly lowered over time to avoid any side effects. You may get drowsy or dizzy when you first start taking the medicine or change doses. Do not drive, use machinery, or do anything that may be dangerous until you know how the medicine affects you. Stand or sit up slowly. There are different types of narcotic medicines (opiates) for pain. If you take more than one type at the same time, you may have more side effects. Give your health care provider a list of all medicines you use. Your doctor will tell you how much medicine to take. Do not take more medicine than directed. Call emergency for help if you have problems breathing. The medicine will cause constipation. Try to have a bowel movement at least every 2 to 3 days. If you do not have a bowel movement for 3 days, call your doctor or health pet care technician. Too much acetaminophen can be very dangerous. Do not take Tylenol (acetaminophen) or medicines that contain acetaminophen with this medicine. Many non-prescription medicines contain acetaminophen. Always read the labels carefully. You have been given the following additional information: Dressing Change Hydrocodone Bitartrate, Acetaminophen Oral tablet (Electronically signed by Byron Lester MD 09/12/2016 22:05)
== END 2016-09-08 20:50 | disposition home or self-care (01) ==
LOC: ED SRH 20:04
DX: L72.8 Other follicular cysts of the skin and subcutaneous tissue (principal); K21.9 Gastro-esophageal reflux disease without esophagitis; F17.210 Nicotine dependence, cigarettes, uncomplicated
CPT/HCPCS: 90131; 90309; 90470